=== PATIENT | male | born 1970 ===

== ENCOUNTER 2023-10-20 22:50 | Outpatient (CLI) | payer MEDICAID | END 2023-10-21 23:59 | disposition short-term general hospital (02) | LOC: EMS 22:50 | PROVIDERS: ATTEND Emergency Medicine | DX: T62.0X4A Toxic effect of ingested mushrooms, undetermined, initial encounter (principal); R41.82 Altered mental status, unspecified | CPT/HCPCS: A0425; A0429; A0999 ==